=== PATIENT | female | born 1980 | race Caucasian/White ===

== ENCOUNTER → 2017-05-04 | Outpatient (CLI) | payer BC ==
--- NOTE | 2017-05-04 17:02 | US ---
EXAM DESCRIPTION: Breast,Left CLINICAL HISTORY: 36 yearsFemaleBREAST TENDERNESS COMPARISON: Digital 3-D tomosynthesis bilateral breast examination on this visit. TECHNIQUE: Transcutaneous scanning of the left anterior and mid-, retroareolar and inferior breast utilizing two-dimensional and Doppler modes. Scanning performed by the body man and Dr. Sue. FINDINGS: Heterogeneous fibroglandular and left fatty breast tissues where ridgelike masses are palpable. No discrete solid mass or cyst. No parenchymal edema or large calcifications. IMPRESSION: 1. BiRads Category 2: Benign. 2. Please refer to bilateral digital 3-D breast tomosynthesis examination on this visit. The findings and the follow-up plan were reviewed in person with the patient after the examination. Electronically signed by: Juan Alberto Sue MD 05/04/2017 5:01 PM CDT
== END ==
LOC: US 15:02
PROVIDERS: ATTEND Nurse Practitioner Acute Care
DX: N64.59 Other signs and symptoms in breast (principal)

== ENCOUNTER → 2017-11-29 | Outpatient (CLI) | payer BC, OTHER ==
--- NOTE | 2017-11-29 21:03 | MRI ---
EXAM DESCRIPTION: Lower Extremity,Right: MRI. CLINICAL HISTORY: PLANTAR FASCIAL FIBROMATOSIS COMPARISON: None. TECHNIQUE: Multiplanar, high-field MRI, multiple sequences, without contrast: Right ankle and foot. FINDINGS: Normal signal in the plantar fascia from the calcaneal origin to the level of the proximal metatarsals. Normal signal and caliber with no abnormal thickening or edema. Normal signal in the adjacent adipose tissues in the plantar muscles. Normal marrow signal in the calcaneal origin. Achilles tendon and other tendons demonstrate normal signal. No fluid in the tarsal tunnel. Small hypertrophic changes in the superior talonavicular joint with elevation of the joint capsule and a tiny 4 x 3 mm cyst at the joint space margin, best seen on the lateral view. No joint effusion. No subchondral bone abnormalities. Remaining joint spaces are unremarkable. Medial and lateral stabilizing ligaments are intact. No soft tissue mass or edema. IMPRESSION: 1. Normal signal in the right foot plantar fascia with no evidence of plantar fascial fibromatosis. 2. Minimal hypertrophic changes in the superior right talonavicular joint with small ganglion cyst abutting the joint space. Electronically signed by: Juan Alberto Sue MD 11/29/2017 9:01 PM CDT Workstation: [id number]
== END | disposition home or self-care (01) ==
LOC: MRI 12:56
PROVIDERS: ATTEND Podiatrist Foot & Ankle Surgery
DX: M72.2 Plantar fascial fibromatosis (principal)

== ENCOUNTER → 2018-02-02 | Outpatient (CLI) | payer OTHER | LOC: GMAJ 10:42 | PROVIDERS: ATTEND Family Medicine | DX: Z00.00 Encounter for general adult medical examination without abnormal findings (principal) ==

== ENCOUNTER → 2020-01-01 | Outpatient (CLI) | payer OTHER | LOC: GMAJ 16:38 | PROVIDERS: ATTEND Family Medicine | DX: Z00.00 Encounter for general adult medical examination without abnormal findings (principal) ==

== ENCOUNTER → 2020-07-03 | Outpatient (CLI) | payer OTHER | LOC: GMAJ 15:05 | PROVIDERS: ATTEND Family Medicine | DX: R30.0 Dysuria (principal) ==